=== PATIENT | female | born 1990 | race Hispanic/Latino ===

== ENCOUNTER 2018-01-17 11:30 | Outpatient (CLI) | payer BC ==
[2018-01-17 12:43] LABS: #Basophils 0.1 thou/uL (0.0-0.2); #Eosinphils 0.1 thou/uL (0.0-0.7); #Lymphocytes 1.4 thou/uL (1.20-3.40); #Monocytes 0.4 thou/uL (0.11-0.59); %Eosinophils 1.9 % (0.0-10.0); %Lymphocytes 20.3 % (21.0-51.0); %Monocytes 5.6 % (0.0-10.0); %Neutrophils 71.2 % (42.0-75.0); Hemoglobin 13.7 g/dL (12.0-16.0); Mean Corpuscular HGB CONC 33.5 g/dL (32.0-36.0); Mean Corpuscular Hemoglobin 32.2 pg (27.0-31.0); Mean Corpuscular Volume 96.2 fl (81.0-99.0); Mean Platelet Volume 8.9 fL (7.4-10.4); Platelet Count 239 thou/uL (130-400); RBC Distribution Width 11.1 % (11.5-14.5); Red Blood Cell (RBC) Count 4.24 mill/uL (4.20-5.40)
[2018-01-17 13:06] LABS: BHCG - Serum Negative (NEGATIVE); Pregs Control Background? CLEAR/WHITE (CLR/WHITE); Pregs Control Bar Appear? YES (CONTROL BAR)
== END 2018-01-17 11:31 | disposition home or self-care (01) ==
LOC: LABBT 11:30
PROVIDERS: ATTEND Specialist
DX: Z01.812 Encounter for preprocedural laboratory examination (principal); K42.9 Umbilical hernia without obstruction or gangrene
CPT/HCPCS: 84703; 85025

== ENCOUNTER 2018-01-18 07:30 | Day surgery (SDC) | payer BC ==
[2018-01-17 11:42] VITALS: BMI 27.9
[2018-01-18] MEDS ORDERED: Bupivacaine HCl 0.5%/Epinephrine 1:200,000/PF 30 ml Vial ONE (07:44)
[2018-01-18] MEDS ORDERED: Fentanyl 250 MCG/5 ML VIAL ONE ×2 (07:52→09:38)
[2018-01-18] MEDS ORDERED: CEFAZOLIN/Water 2 GM/20 ML SYRINGE ONE (07:57)
[2018-01-18] MEDS ORDERED: Scopolamine 1.5 mg/72 hour Patch ONE (07:57)
[2018-01-18] MEDS ORDERED: Ketorolac Tromethamine 30 MG/ML VIAL ONE (07:57)
[2018-01-18] MEDS ORDERED: Promethazine HCl 25 MG/ML VIAL ONE (10:09)
--- NOTE | 2018-01-18 10:14 | OP ---
DATE OF OPERATION: 01/18/2018 PREOPERATIVE DIAGNOSIS: Umbilical hernia. POSTOPERATIVE DIAGNOSIS: Umbilical hernia. PROCEDURE PERFORMED: 4.3 cm Parietex-coated mesh, preperitoneal reinforcement of fascial closure. SURGEON: Dr. Tim Fernandes ANESTHESIA: General. Local 0.5% Marcaine with epinephrine, 30 mL, mixed with 2% Xylocaine, 10 mL to chana volume mixture used. PROCEDURE IN DETAIL: Patient was taken to the operating room under general anesthesia. Abdomen was prepped with ChloraPrep, draped in routine fashion. Incision made below the umbilicus skin and subcu taneus tissue and the fascial defect identified and subcutaneous tissues dissected free and mesh plac ed in the preperitoneal space and fascia approximated [id number] with interrupted sutures of 0 P DS pop-offs incorporating mesh approximation of the fascial closure. There was noted to be sutures t hat penetrated the skin and she had very small amount of a small amount of subcutaneous fat. This PD S sutures removed and replaced into the fascia and the skin was excised over a short segment and appr oximately interrupted subdermal 4-0 Monocryl and DermaGlue applied. Local anesthetic infiltrated abo ut the skin and subcutaneous tissue for postoperative pain control. Umbilicus fastened to the fascia with 3-0 Monocryl and subcutaneous tissues approximated with continuous suture of 3-0 Monocryl, skin with subdermal 4-0 Monocryl and DermaGlue applied. The patient tolerated the procedure well.
[2018-01-18] MEDS ORDERED: HYDROcodone/Acetaminophen 5/325 mg Tablet ONE (11:31)
[2018-01-18] MEDS ORDERED: Lidocaine 1% PF 5 ML VIAL ONE (15:13)
[2018-01-18] MEDS ORDERED: Succinylcholine Chloride 20 MG/ML 10 ml SYRINGE FS ONE (15:13)
[2018-01-18] MEDS ORDERED: Ondansetron HCl/PF 4 MG/2 ML Vial ONE (15:13)
[2018-01-18] MEDS ORDERED: Propofol 200 MG/20 ML VIAL ONE (15:13)
== END 2018-01-18 12:00 | disposition home or self-care (01) ==
LOC: SDC 07:30
PROVIDERS: ATTEND Specialist
PROC: 0WUF0JZ Supplement Abdominal Wall with Synthetic Substitute, Open Approach (ICD-10-PCS; principal; 2018-01-18)
DX: K42.9 Umbilical hernia without obstruction or gangrene (principal); Z88.5 Allergy status to narcotic agent; Z91.040 Latex allergy status
CPT/HCPCS: 96374; J0131; J0670; J1885; J2001; J2405; J2550; J2704; J3010

== ENCOUNTER 2018-08-10 14:32 | Outpatient (CLI) | payer BC ==
--- NOTE | 2018-08-10 16:41 | ULT ---
LEFT BREAST ULTRASOUND LIMITED: 08/10/18 HISTORY: 27-year-old female with history of pain on the lateral side of the left breast without evidence of an y palpable finding. The left breast was evaluated from the 12 o'clock to 6 o'clock position. No solid or cystic mass. In the retroareolar region there was one minimally dilated duct, although the patient has just finished breast feeding and this dilated duct may well be physiologic. This is not in the region of any focal painful concern or palpable finding. IMPRESSION: Unremarkable left breast ultrasound. no solid or cystic mass. If the patient develops any palpable fi nding, then followup ultrasound study should be considered. Consider routine screening mammography at age 35 to 40 depending upon risk factors. POS: OFF
== END 2018-08-10 14:33 | disposition home or self-care (01) ==
LOC: BICULT 14:32
PROVIDERS: ATTEND Family Medicine
DX: N64.4 Mastodynia (principal)

== ENCOUNTER 2018-08-28 14:22 | Outpatient (CLI) | payer BC | END 2018-08-28 14:23 | disposition home or self-care (01) | LOC: BICMAMMO 14:22 | PROVIDERS: ATTEND Family Medicine | DX: N64.4 Mastodynia (principal) | CPT/HCPCS: 77066; G0279 ==

== ENCOUNTER 2019-09-07 07:59 | Outpatient (CLI) | payer BC ==
--- NOTE | 2019-09-07 10:36 | ULT ---
LEFT BREAST ULTRASOUND: Date: 09/07/19 HISTORY: Left axillary breast pain. No discrete palpable abnormality. COMPARISON: Mammogram study of 08/28/18 and a left breast ultrasound of 08/10/18. FINDINGS: Real-time imaging of the lateral aspect of the breast in the region of pain fails to show any definit e discrete abnormality. IMPRESSION: Unremarkable left breast ultrasound. POS: OFF
== END 2019-09-07 08:00 | disposition home or self-care (01) ==
LOC: BICULT 07:59
PROVIDERS: ATTEND Family Medicine
DX: N64.4 Mastodynia (principal)

== ENCOUNTER 2021-11-17 17:10 | Emergency (ER) | payer BC ==
[2021-11-17] MEDS ORDERED: Ketorolac Tromethamine 30 MG/ML VIAL ONE (17:44)
[2021-11-17 17:47] LABS: #Basophils 0.1 thou/uL (0.0-0.2); #Eosinphils 0.1 thou/uL (0.0-0.7); #Lymphocytes 1.7 thou/uL (1.20-3.40); #Monocytes 0.5 thou/uL (0.11-0.59); #Neutrophils 7.3 thou/uL (1.40-6.50); %Basophils 0.7 % (0.0-1.0); %Eosinophils 1.3 % (0.0-10.0); %Lymphocytes 17.4 % (21.0-51.0); %Monocytes 5.4 % (0.0-10.0); %Neutrophils 75.2 % (42.0-75.0); Hemoglobin 12.5 g/dL (12.0-16.0); Mean Corpuscular HGB CONC 33.5 g/dL (32.0-36.0); Mean Corpuscular Hemoglobin 31.9 pg (27.0-31.0); Mean Corpuscular Volume 95.4 fL (78.0-98.0); Mean Platelet Volume 8.9 fL (7.4-10.4); Platelet Count 236 thou/uL (130-400); RBC Distribution Width 10.5 % (11.5-14.5); Red Blood Cell (RBC) Count 3.93 mill/uL (4.20-5.40); White Blood Cell (WBC) Count 9.7 thou/uL (4.8-10.8)
[2021-11-17 18:09] LABS: BHCG - Serum Negative (NEGATIVE); Pregs Control Background? CLEAR/WHITE (CLR/WHITE); Pregs Control Bar Appear? YES (CONTROL BAR)
[2021-11-17 18:10] LABS: ALT (SGPT) 13 U/L (8-55); AST (SGOT) 14 U/L (5-34); Albumin 4.6 g/dL (3.5-5.0); Alkaline Phosphatase 103 U/L (40-110); Anion Gap 15 mmol/L (10-20); BUN (Urea Nitrogen) 20 mg/dL (7.0-18.7); Bilirubin, Total 0.5 mg/dL (0.2-1.2); Calc. Creatinine Clearance 0 mL/min (70-130); Calcium 9.4 mg/dL (7.8-10.44); Carbon Dioxide 22 mmol/L (22-29); Chloride 107 mmol/L (98-107); Globulin 2.9 g/dL (2.4-3.5); Glucose 88 mg/dL (70-105); Potassium 4.1 mmol/L (3.5-5.1); Protein, Total 7.5 g/dL (6.0-8.3); Sodium 140 mmol/L (136-145)
[2021-11-17 18:57] LABS: Bacteria/HPF None Seen HPF (None Seen); Bilirubin Negative (Negative); Blood, Urine 3+ (Negative); Clarity Clear (Clear); Glucose, Urine (Dipstick) Normal (Negative); Ketone, Urine 60 mg/dL (Negative); Leukocyte Negative Leu/uL (Negative); Nitrite Negative (Negative); Protein, Urine (Dipstick) 20 mg/dL (Neg-Trace); Specific Gravity, Urine 1.031 (1.002-1.036); WBC/HPF 0-3 HPF (0-3)
[2021-11-17] MEDS ORDERED: HYDROcodone/Acetaminophen 10/325 mg Tablet ONE (19:48)
== END 2021-11-17 21:10 | disposition home or self-care (01) ==
LOC: ERS 17:10
DX: N20.1 Calculus of ureter (principal)
CPT/HCPCS: 36415; 74176; 80053; 81003; 81015; 84703; 85025; 96372; J1885

== ENCOUNTER 2025-08-23 14:10 | Outpatient (CLI) | payer SELFPAY ==
[2025-08-23 15:05] LABS: #Basophils 0.04 10x3/uL (0.0-0.2); #Eosinophils 0.13 10x3/uL (0.0-0.7); #Monocytes 0.77 10x3/uL (0.11-0.59); #Neutrophils 6.03 10x3/uL (1.40-6.50); %Basophils 0.4 % (0.0-1.0); %Eosinophils 1.4 % (0.0-10.0); %Lymphocytes 23.3 % (21.0-51.0); %Monocytes 8.4 % (0.0-10.0); %Neutrophils 66.1 % (42.0-75.0); Hematocrit 40.7 % (36.0-47.0); Hemoglobin 13.5 g/dL (12.0-16.0); Mean Corpuscular Hemoglobin 30.5 pg (27.0-31.0); Mean Corpuscular Volume 92.1 fL (78.0-98.0); Platelet Count 268 10x3/uL (130-400); Red Blood Cell (RBC) Count 4.42 mill/uL (4.20-5.40); White Blood Cell (WBC) Count 9.14 10x3/uL (4.8-10.8)
[2025-08-23 15:20] LABS: INR-International Normal Ratio 1.0; PTT 29.5 sec (22.9-36.1); Prothrombin Time 13.7 sec (12.0-14.7)
[2025-08-23 15:31] LABS: Anion Gap 15 mmol/L (10-20); BUN (Urea Nitrogen) 14 mg/dL (7.0-18.7); Calc. Creatinine Clearance 0 mL/min (70-130); Calcium 9.4 mg/dL (7.8-10.44); Carbon Dioxide 20 mmol/L (22-29); Chloride 106 mmol/L (98-107); Glucose 84 mg/dL (70-105); Potassium 4.0 mmol/L (3.5-5.1); Sodium 137 mmol/L (136-145)
[2025-08-23 15:35] LABS: Bacteria/HPF None Seen HPF (None Seen); Glucose, Urine (Dipstick) Normal (Negative); Leukocyte 25 Leu/uL (Negative); Protein, Urine (Dipstick) 20 mg/dL (Neg-Trace); Specific Gravity, Urine 1.031 (1.002-1.036)
[2025-08-23 15:38] LABS: BHCG - Serum Negative (NEGATIVE); Pregs Control Background? CLEAR/WHITE (CLR/WHITE); Pregs Control Bar Appear? YES (CONTROL BAR)
== END 2025-08-23 14:11 | disposition home or self-care (01) ==
LOC: LABBT 14:10
PROVIDERS: ATTEND Urology
DX: Z01.812 Encounter for preprocedural laboratory examination (principal); N20.0 Calculus of kidney; R35.0 Frequency of micturition
CPT/HCPCS: 80048; 84703; 85025; 85610; 85730; 87086

== ENCOUNTER 2025-08-27 15:20 | Outpatient (CLI) | payer OTHER | END 2025-08-27 15:21 | disposition home or self-care (01) | LOC: CT 15:20 | PROVIDERS: ATTEND Urology | DX: N13.2 Hydronephrosis with renal and ureteral calculous obstruction (principal) | CPT/HCPCS: 74176 ==

== ENCOUNTER 2025-08-28 06:27 | Day surgery (SDC) | payer SELFPAY ==
[2025-08-23 14:22] VITALS: BMI 34.2
[2025-08-28] MEDS ORDERED: LevoFLOXacin D5W 500 mg (100 mL) BAG ONE (06:37)
[2025-08-28] MEDS ORDERED: Famotidine/PF 20 mg/2ml Vial ONE (07:06)
[2025-08-28] MEDS ORDERED: Vancomycin 1 GM/200 ML (FROZEN) BAG ONE (07:53)
[2025-08-28] MEDS ORDERED: fentaNYL PF 100 MCG/2 ML SYRINGE ONE (08:03)
[2025-08-28] MEDS ORDERED: Lidocaine 1% PF 5 ML VIAL ONE (08:05)
[2025-08-28] MEDS ORDERED: PROPOFOL 200 MG/20 ML VIAL ONE (08:53)
[2025-08-28] MEDS ORDERED: Glycopyrrolate 0.2 MG/ML 5 ML SYRINGE ONE (08:53)
[2025-08-28] MEDS ORDERED: PHENYLEPHRINE-NS 100 MCG/ML 10 ML SYRINGE ONE ×2 (09:07→09:49)
[2025-08-28] MEDS ORDERED: Ketorolac Tromethamine 30 MG (1 mL) VIAL ONE (09:48)
[2025-08-28] MEDS ORDERED: Ondansetron PF 4 MG/2 ML Vial ONE ×2 (09:50→10:27)
[2025-08-28] MEDS ORDERED: Oxybutynin 5 MG TAB ONE (10:21)
[2025-08-28] MEDS ORDERED: HYDROcodone/Acetaminophen 5/325 mg Tablet ONE (11:46)
== END 2025-08-28 14:49 | disposition home or self-care (01) ==
LOC: SDC 06:27
PROVIDERS: ATTEND Urology
PROC: 0T778DZ Dilation of Left Ureter with Intraluminal Device, Via Natural or Artificial Opening Endoscopic (ICD-10-PCS; principal; 2025-08-28)
PROC: 0TC18ZZ Extirpation of Matter from Left Kidney, Via Natural or Artificial Opening Endoscopic (ICD-10-PCS; principal; 2025-08-28)
DX: N13.2 Hydronephrosis with renal and ureteral calculous obstruction (principal); F41.1 Generalized anxiety disorder; F32.A Depression, unspecified; Z91.040 Latex allergy status; Z98.890 Other specified postprocedural states; Z87.891 Personal history of nicotine dependence; Z88.5 Allergy status to narcotic agent; Z86.16 Personal history of COVID-19; Z79.899 Other long term (current) drug therapy
CPT/HCPCS: 74018; 74420; 82365; 84550; 88300; C1747; C1758; C1769; C2617; J1100; J1308; J1885; J1956; J2250; J2405; J2704; J3010; J3373; Q0169; Q9967

== ENCOUNTER 2025-08-28 14:22 | Emergency (ER) | payer SELFPAY ==
[2025-08-28] MEDS ORDERED: diphenhydrAMINE 25 MG CAP ONE (15:52)
[2025-08-28] MEDS ORDERED: Ketorolac Tromethamine 30 MG (1 mL) VIAL ONE (15:52)
[2025-08-28] MEDS ORDERED: Ondansetron PF 4 MG/2 ML Vial ONE ×2 (15:53)
[2025-08-28] MEDS ORDERED: Oxybutynin 5 MG TAB PO SCH (16:30)
== END 2025-08-28 17:01 | disposition home or self-care (01) ==
LOC: ERS 14:22
DX: N99.89 Other postprocedural complications and disorders of genitourinary system (principal); R10.A2 Flank pain, left side
CPT/HCPCS: 96374; 96375; J1885; J2270; J2405